=== PATIENT | female | born 1970 | race Caucasian/White ===

== ENCOUNTER 2018-05-22 12:05 | Inpatient (IN) | payer BC ==
[~2018-05-22 12:05] MED LIST: GLYCOPYRROLATE 0.4 MG INJ; LIDOCAINE 2% (SDV) 5 ML INJ
[2018-05-22] MEDS ORDERED: HYDROmorphONE 0.5 MG/0.5 ML SYG IV (13:30)
[2018-05-22] MEDS ORDERED: CYCLOBENZAPRINE 10 MG TAB PO (13:30)
[2018-05-22] MEDS ORDERED: BISACODYL 10 MG SUPP PR (13:30)
[2018-05-22] MEDS ORDERED: DIPHENHYDRAMINE 50 MG INJ IV ×2 (13:30→17:00)
[2018-05-22] MEDS ORDERED: HYDROCODONE/APAP (5/325) TAB PO (13:30)
[2018-05-22] MEDS ORDERED: DIPHENHYDRAMINE 25 MG CAP PO (13:30)
[2018-05-22] MEDS ORDERED: CEPASTAT LOZENGE MT (13:30)
[2018-05-22] MEDS ORDERED: NALOXONE (0.4 MG/ML) INJ IV (13:30)
[2018-05-22] MEDS ORDERED: ACETAMINOPHEN 325 MG TAB PO (13:30)
[2018-05-22] MEDS ORDERED: MIDAZOLAM 1 MG/ML 2 ML INJ (13:30)
[2018-05-22] MEDS ORDERED: AL HYDROX/MG HYDROX/SIMETH 30 ML CUP PO (13:30)
[2018-05-22] MEDS ORDERED: GELATIN SIZE 100 SPONGE (13:40)
[2018-05-22] MEDS ORDERED: PROPOFOL 20 ML (14:01)
[2018-05-22] MEDS ORDERED: CEFAZOLIN 1 GM INJ (14:14)
[2018-05-22] MEDS ORDERED: HYDROmorphONE 2 MG/ML SYG (14:15)
[2018-05-22] MEDS ORDERED: ROCURONIUM 50 MG INJ (14:16)
[2018-05-22] MEDS: CEFAZOLIN 1 GM/50 ML (PMX) 50 ML IVPB ×2 (14:20→21:29)
[2018-05-22] MEDS ORDERED: DEXAMETHASONE 4 MG/ML 1 ML INJ (14:20)
[2018-05-22] MEDS: BUPIVACAINE 0.25%/EPI (SDV) 10 ML INJ (14:58)
[2018-05-22] MEDS: THROMBIN 5000 UNIT VIAL (14:59)
[2018-05-22] MEDS: SURGIFOAM POWDER 1 GM KIT (14:59)
[2018-05-22] MEDS: POLYMYXIN/BACITRACIN 1L IRRIG (15:00)
[2018-05-22] MEDS ORDERED: ONDANSETRON 4 MG INJ (16:22)
[2018-05-22] MEDS ORDERED: GLYCOPYRROLATE 0.4 MG INJ (16:23)
[2018-05-22] MEDS ORDERED: NEOSTIGMINE 3 MG/3 ML SYRINGE (16:23)
[2018-05-22] MEDS: HYDROmorphONE 0.2 MG/ML PCA IV (16:58)
[2018-05-22] MEDS ORDERED: ALBUTEROL 0.083% (NEB) 2.5 MG/3 ML AMP HHN (17:00)
[2018-05-22] MEDS ORDERED: MEPERIDINE 25 MG INJ IV (17:00)
[2018-05-22] MEDS ORDERED: FENTAnyl 50 MCG/ML VIAL IV ×3 (17:00)
[2018-05-22] MEDS ORDERED: KETOROLAC 30 MG INJ IV (17:00)
[2018-05-22] MEDS ORDERED: LABETALOL HCL 20MG INJ IV (17:00)
[2018-05-22] MEDS ORDERED: METOCLOPRAMIDE 10 MG INJ IV (17:00)
[2018-05-22] MEDS ORDERED: ONDANSETRON 4 MG INJ IV (17:00)
[2018-05-22] MEDS ORDERED: HYDROmorphONE 1 MG/5 ML IV SYRINGE IV ×3 (17:00)
[2018-05-22] MEDS ORDERED: hydrALAzine 20 MG INJ IV (17:00)
[2018-05-22] MEDS ORDERED: MIDAZOLAM 1 MG/ML 2 ML INJ IV (17:00)
[2018-05-22] MEDS ORDERED: OXYCODONE/ACETAMINOPHEN (5/325) TAB PO ×2 (17:00)
[2018-05-22] MEDS ORDERED: EPHEDrine SULFATE 50 MG/5 ML SYG IV (17:00)
[2018-05-22] MEDS ORDERED: ALBUTEROL HFA 8 GM INHALER INH (17:30)
[2018-05-22] MEDS: VERAPAMIL (SR) 180 MG TAB PO (17:30)
[2018-05-22] MEDS: ONDANSETRON 4 MG INJ IV ×2 (17:38→23:17)
[2018-05-22] MEDS: D5W-0.45 NACL + KCL 20 MEQ 1,000 ML IV ×2 (18:58→23:17)
[2018-05-22] MEDS: METOCLOPRAMIDE 10 MG INJ IV (18:59)
[2018-05-22] MEDS: DOCUSATE SODIUM 100 MG CAP PO (21:00)
[2018-05-23] MEDS: D5W-0.45 NACL + KCL 20 MEQ 1,000 ML IV (03:59)
[2018-05-23] MEDS: PANTOPRAZOLE 40 MG INJ IV (05:05)
[2018-05-23] MEDS: ONDANSETRON 4 MG INJ IV (05:05)
[2018-05-23] MEDS: CEFAZOLIN 1 GM/50 ML (PMX) 50 ML IVPB (05:05)
[2018-05-23 05:38] LABS: ADD MAN DIFF? NO
[2018-05-23 05:44] LABS: WHITE BLOOD COUNT 10.6 10^3/ul (4.8-10.8)
[2018-05-23 05:44] LABS: ABNORMAL IP MESSAGE 1; BASOPHILS % 0.1 % (0.0-2.0); HEMATOCRIT 40.2 % (37.0-47.0); HEMOGLOBIN 13.7 g/dl (12.0-16.0); LYMPHOCYTES # 0.5 10^3/ul (0.8-2.9); LYMPHOCYTES % 4.2 % (15.0-51.0); MEAN CORPUSCULAR HEMOGLOBIN 32.4 pg (29.0-33.0); MEAN CORPUSCULAR HGB CONC 34.1 g/dl (32.0-37.0); MEAN PLATELET VOLUME 10.1 fl (7.4-10.4); MONOCYTE # 0.2 10^3/ul (0.3-0.9); MONOCYTES % 2.2 % (0.0-11.0); NEUTROPHIL # 9.9 10^3/ul (1.6-7.5); NEUTROPHILS % 92.8 % (39.0-77.0); PLATELET COUNT 214 10^3/UL (140-415); RED BLOOD COUNT 4.23 10^6/ul (4.20-5.40); RED CELL DISTRIBUTION WIDTH 12.6 % (11.5-14.5)
[2018-05-23 05:56] LABS: POSITIVE DIFF @See below
[2018-05-23 06:23] LABS: ANION GAP 12 (5-13); BLOOD UREA NITROGEN 9 mg/dl (7-20); CALCIUM 9.1 mg/dl (8.4-10.2); CARBON DIOXIDE 23 mmol/L (21-31); CHLORIDE 104 mmol/L (97-110); CREATININE 0.53 mg/dl (0.44-1.00); Estimated GFR > 60 mL/min (>60); GLUCOSE 159 mg/dl (70-220); MAGNESIUM 1.9 mg/dl (1.7-2.5); POTASSIUM 4.6 mmol/L (3.5-5.1); SODIUM 139 mmol/L (135-144)
[2018-05-23] MEDS: VERAPAMIL (SR) 180 MG TAB PO (08:17)
[2018-05-23] MEDS: DOCUSATE SODIUM 100 MG CAP PO (08:17)
[2018-05-23] MEDS: HYDROCODONE/APAP (5/325) TAB PO (14:31)
== END 2018-05-23 16:10 | disposition home or self-care (01) | DRG 473 ==
LOC: REC 12:05 → MS1 17:54
PROC: 0RT30ZZ Resection of Cervical Vertebral Disc, Open Approach (ICD-10-PCS; principal; 2018-05-22 13:59)
PROC: 0RG20A0 Fusion of 2 or more Cervical Vertebral Joints with Interbody Fusion Device, Anterior Approach, Anterior Column, Open Approach (ICD-10-PCS; 2018-05-22 13:59)
PROC: 0RG2070 Fusion of 2 or more Cervical Vertebral Joints with Autologous Tissue Substitute, Anterior Approach, Anterior Column, Open Approach (ICD-10-PCS; 2018-05-22 13:59)
PROC: 4A11X4G Monitoring of Peripheral Nervous Electrical Activity, Intraoperative, External Approach (ICD-10-PCS; 2018-05-22 13:59)
DX: M50.122 Cervical disc disorder at C5-C6 level with radiculopathy (principal); I10 Essential (primary) hypertension; J45.909 Unspecified asthma, uncomplicated; Z87.891 Personal history of nicotine dependence
CPT/HCPCS: 72052; 80048; 83735; 85025; 88304; 97116; 97161; 97530